=== PATIENT | female | born 1990 | race American Indian/Alaskan Native ===

== ENCOUNTER 2018-10-27 23:25 | Emergency (ER) | payer SELFPAY ==
[2018-10-27 23:56] VITALS: BP 118/80
[2018-10-28] MEDS ORDERED: IBUPROFEN PO ONE (00:44)
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
--- NOTE | 2018-10-28 01:41 | XRay Report ---
FINAL REPORT PROCEDURE: XRAY KNEE COMPLETE LEFT TECHNIQUE: LEFT knee radiographs, AP, lateral and sunrise views. CPT 84344 HISTORY: LEFT KNEE PAIN COMPARISON: No prior studies are available for comparison. FINDINGS: Fracture (s) and/or Dislocation(s): None . Alignment: Normal . Joint space(s): Normal . Soft tissues: There is pretibial soft tissue swelling.. Bone mineralization: Normal . Foreign bodies: None . IMPRESSION: There are no fractures or malalignments. There is pretibial soft tissue swelling..
== END 2018-10-28 02:33 | disposition home or self-care (01) ==
LOC: ED 23:25
DX: S43.402A Unspecified sprain of left shoulder joint, initial encounter (principal); S80.02XA Contusion of left knee, initial encounter; S50.12XA Contusion of left forearm, initial encounter; Z91.018 Allergy to other foods; Z88.0 Allergy status to penicillin; Z88.5 Allergy status to narcotic agent; V89.2XXA Person injured in unspecified motor-vehicle accident, traffic, initial encounter; Y93.89 Activity, other specified; Y92.488 Other paved roadways as the place of occurrence of the external cause; Y99.8 Other external cause status
CPT/HCPCS: 99283